=== PATIENT | female | born 1995 | race Caucasian/White ===

== ENCOUNTER 2019-02-24 14:53 | Outpatient (CLI) | payer OTHER ==
[~2019-02-24] VITALS: Ht 165.1 cm; Wt 99.3 kg
[~2019-02-24 14:53] MED LIST: METF-849 PO; PNV11TAB PO
[2019-02-24 15:19] VITALS: Ht 165.1 cm; Wt 99.3 kg
== END 2019-02-24 17:50 | disposition home or self-care (01) ==
LOC: OBT 14:53 → L-D 14:55 → OBT 17:50
PROVIDERS: ATTEND Obstetrics & Gynecology
DX: O36.8130 Decreased fetal movements, third trimester, not applicable or unspecified (principal); O24.415 Gestational diabetes mellitus in pregnancy, controlled by oral hypoglycemic drugs; Z3A.37 37 weeks gestation of pregnancy
CPT/HCPCS: 76818; 82962; Z7500; G0463